=== PATIENT | female | born 1930 | race Caucasian/White ===

== ENCOUNTER 2019-05-06 10:58 | Emergency (ER) | payer MEDICARE ==
[~2019-05-06] VITALS: Ht 160 cm; Wt 83.0 kg
--- NOTE | 2019-05-06 11:41 | PHYS DOC ---
Past Medical History Past Medical History: Cancer, High Cholesterol, Hypertension, Hypothyroid Additional Past Medical Histor: SKIN CA Past Surgical History: Cholecystectomy, Hysterectomy Additional Past Surgical Histo: BILAT CATARACTS, SKIN CA REMOVED FROM HANDS/LIPS Smoking Status: Never Smoker Alcohol Use: Occasionally Drug Use: None Adult General Chief Complaint Chief Complaint: LOWER EXT PAIN HPI HPI Patient is an 88-year-old female who presents to the emergency department for evaluation. She states for the past 2 weeks she has had worsening pain in her right leg. She states it began as a right leg cramp,, in her right calf, which has gradually worked its way up to the posterior aspect of the soft tissues of her thigh, and her popliteal area. She denies any significant increase in swelling, denies any chest pain or shortness of breath, numbness, or weakness. Palpation, and ambulation worsen her pain. There are no alleviating factors to her symptoms. She has had no numbness or weakness. She is having no bony pain. The pain is primarily isolated to the soft tissues of her calf and leg. Review of Systems Review of Systems Constitutional: Denies fever or chills [] Eyes: Denies change in visual acuity, redness, or eye pain [] HENT: Denies nasal congestion or sore throat [] Respiratory: Denies cough or shortness of breath [] Cardiovascular: No additional information not addressed in HPI [] GI: Denies abdominal pain, nausea, vomiting, bloody stools or diarrhea [] : Denies dysuria or hematuria [] Musculoskeletal: Denies back pain or joint pain [] Integument: Denies rash or skin lesions [] Neurologic: Denies headache, focal weakness or sensory changes [] Endocrine: Denies polyuria or polydipsia [] All other systems were reviewed and found to be within normal limits, except as documented in this note. Allergies Allergies Allergies Coded Allergies Type Severity Reaction Last Updated Verified No Known Drug Allergies 02/09/15 No Physical Exam Physical Exam PHYSICAL EXAM: CONSTITUTIONAL: Well developed, well nourished HEAD: normocephalic, atraumatic EENT: PERRL, EOMI. Conjunctivae normal color, sclerae non-icteric; moist mucous membranes. NECK: Supple, non-tender; no meningismus. LUNGS: Lungs CTA, breathing even and unlabored. Normal air movement. HEART: Regular rate and rhythm, no murmur CHEST: No deformity; non-tender ABDOMEN: The abdomen is soft, and non-tender, no masses or bruits. EXTREM: Normal ROM; no deformity, Normal pulses palpable in all extremities. There is mild bilateral pedal edema. There is tenderness to palpation to the right calf, as well as less prominent tenderness to palpation of the soft tissues the popliteal fossa and the right posterior/medial thigh, without any definite palpable cord. There is no warmth or erythema. The remainder the extremities are unremarkable. There is a strong distal dorsalis pedis pulse, and range of motion in the extremities is intact. There is intact sensation distally. There is no bony tenderness to palpation to the bones of the lower extremities. SKIN: No rash; no diaphoresis NEURO: Alert; normal speech and cognition; CN's grossly intact; strength grossly intact without focal deficit. BACK: No CVA TTP. Current Patient Data Vital Signs Vital Signs Date Time Temp Pulse Resp B/P (MAP) Pulse Ox O2 Delivery O2 Flow Rate FiO2 05/06/19 11:30 98.0 72 18 169/77 (107) 99 Room Air 98.0 Lab Values Laboratory Tests Test 05/06/19 12:00 05/06/19 12:55 White Blood Count 8.3 x10^3/uL (4.0-11.0) Red Blood Count 3.70 x10^6/uL (3.50-5.40) Hemoglobin 11.5 g/dL (12.0-15.5) L Hematocrit 34.1 % (36.0-47.0) L Mean Corpuscular Volume 92 fL (79-100) Mean Corpuscular Hemoglobin 31 pg (25-35) Mean Corpuscular Hemoglobin Concent 34 g/dL (31-37) Red Cell Distribution Width 14.4 % (11.5-14.5) Platelet Count 229 x10^3/uL (140-400) Neutrophils (%) (Auto) 68 % (31-73) Lymphocytes (%) (Auto) 12 % (24-48) L Monocytes (%) (Auto) 11 % (0-9) H Eosinophils (%) (Auto) 8 % (0-3) H Basophils (%) (Auto) 1 % (0-3) Neutrophils # (Auto) 5.7 x10^3/uL (1.8-7.7) Lymphocytes # (Auto) 1.0 x10^3/uL (1.0-4.8) Monocytes # (Auto) 0.9 x10^3/uL (0.0-1.1) Eosinophils # (Auto) 0.7 x10^3/uL (0.0-0.7) Basophils # (Auto) 0.1 x10^3/uL (0.0-0.2) Sodium Level 140 mmol/L (136-145) Potassium Level 4.5 mmol/L (3.5-5.1) Chloride Level 105 mmol/L (98-107) Carbon Dioxide Level 25 mmol/L (21-32) Anion Gap 10 (6-14) Blood Urea Nitrogen 22 mg/dL (7-20) H Creatinine 1.4 mg/dL (0.6-1.0) H Estimated GFR (Cockcroft-Gault) 35.5 Glucose Level 101 mg/dL (70-99) H Calcium Level 9.1 mg/dL (8.5-10.1) Magnesium Level 2.4 mg/dL (1.8-2.4) Creatine Kinase 58 U/L (26-192) Laboratory Tests 05/06/19 12:00 Laboratory Tests 05/06/19 12:55 EKG EKG []Normal sinus rhythm at a rate of 60 beats for minute, left axis deviation, nonspecific intraventricular conduction delay with occasional PVC without acute ischemic changes noted. Radiology/Procedures Radiology/Procedures PROCEDURE: VENOUS LOWER EXTREMITY RIGHT EXAM: Right lower extremity venous Doppler sonogram. HISTORY: Pain. TECHNIQUE: Mohr scale and color Doppler sonographic evaluation of the right lower extremity veins with spectral waveform analysis was performed. FINDINGS: There is normal color flow, normal compressibility and there are normal spectral waveforms in the common femoral, superficial femoral, popliteal, posterior tibial and greater saphenous veins. IMPRESSION: No Doppler evidence of lower extremity deep venous thrombosis.[] Course & Med Decision Making Course & Med Decision Making Pertinent Labs and Imaging studies reviewed. (See chart for details) []1:25 PM:Patient remains stable. I discussed test results, the need for close follow-up, and return precautions. Discussed use of low-dose NSAIDs for pain control, the need for further outpatient evaluation if symptoms persist. Return precautions were discussed in detail. Dragon Disclaimer Dragon Disclaimer This electronic medical record was generated, in whole or in part, using a voice recognition dictation system. Departure Departure Impression: Primary Impression: Leg pain Disposition: HOME, SELF-CARE Condition: STABLE Referrals: DENICE ROBERTS MD (PCP) Patient Instructions: Leg Cramps Additional Instructions: Ibuprofen 200-400 mg every 6 hours may help improve your symptoms. Applying a heating pad to the affected area may help improve your symptoms. KASSY BARBOZA MD May 06, 2019 11:41
[2019-05-06 12:13] LABS: BASO # 0.1 x10^3/uL (0.0-0.2); BASO % 1 % (0-3); EOS # 0.7 x10^3/uL (0.0-0.7); EOS % 8 % (0-3); HEMATOCRIT 34.1 % (36.0-47.0); HEMOGLOBIN 11.5 g/dL (12.0-15.5); LYMPH % 12 % (24-48); MEAN CORPUSCULAR HEMOGLOBIN 31 pg (25-35); MEAN CORPUSCULAR HGB CONC 34 g/dL (31-37); MEAN CORPUSCULAR VOLUME 92 fL (79-100); MONO # 0.9 x10^3/uL (0.0-1.1); MONO % 11 % (0-9); NEUT # 5.7 x10^3/uL (1.8-7.7); NEUT % 68 % (31-73); PLATELET COUNT 229 x10^3/uL (140-400); RED CELL DISTRIBUTION WIDTH 14.4 % (11.5-14.5); WHITE BLOOD COUNT 8.3 x10^3/uL (4.0-11.0)
--- NOTE | 2019-05-06 12:16 | RAD ---
EXAM: Right lower extremity venous Doppler sonogram. HISTORY: Pain. TECHNIQUE: Mohr scale and color Doppler sonographic evaluation of the right lower extremity veins with spectral waveform analysis was performed. FINDINGS: There is normal color flow, normal compressibility and there are normal spectral waveforms in the common femoral, superficial femoral, popliteal, posterior tibial and greater saphenous veins. IMPRESSION: No Doppler evidence of lower extremity deep venous thrombosis. Electronically signed by: Xiomy Grande MD (05/06/2019 12:13 PM) [facility] [place]
[2019-05-06 13:08] LABS: CALCIUM 9.1 mg/dL (8.5-10.1); CREATININE 1.4 mg/dL (0.6-1.0); GFR 35.5; POTASSIUM 4.5 mmol/L (3.5-5.1)
[2019-05-06 13:14] LABS: MAGNESIUM 2.4 mg/dL (1.8-2.4)
[2019-05-06 13:18] VITALS: BP 171/77
--- NOTE | 2019-05-06 18:52 | EKG ---
[facility] [address] [place] [id number] Test Date: 2019-05-06 Test Time: 11:34:00 Pat Name: RAKEL CARVAJAL Department: Room: Gender: F Process Maintenance Technician: : [id number] Requested By: KASSY BARBOZA Order Number: [id number] Reading MD: Measurements Intervals [place] Rate: 67 P: 39 TX: 188 QRS: -14 QRSD: 102 T: 18 QT: 398 QTc: 427 Interpretive Statements SINUS RHYTHM VENTRICULAR PREMATURE COMPLEX(ES) LEFTWARD AXIS ABNORMAL ECG No previous ECG available for comparison
== END 2019-05-06 13:50 | disposition home or self-care (01) ==
LOC: ER 10:58
DX: M79.604 Pain in right leg (principal); R60.9 Edema, unspecified; E78.00 Pure hypercholesterolemia, unspecified; I10 Essential (primary) hypertension; E03.9 Hypothyroidism, unspecified; Z90.49 Acquired absence of other specified parts of digestive tract; Z90.710 Acquired absence of both cervix and uterus; Z98.890 Other specified postprocedural states; Z85.828 Personal history of other malignant neoplasm of skin
CPT/HCPCS: 36415; 80048; 82550; 83735; 85025; 93005; 93971; 99285